=== PATIENT | male | born 1990 | race Caucasian/White ===

== ENCOUNTER 2022-01-21 14:30 | Emergency (ER) | payer OTHER, SELFPAY ==
--- NOTE | ~2022-01-21 | XR_ITS ---
EXAMINATION: XR chest 2V 01/21/2022 15:20 INDICATION: Substernal chest pain PROCEDURE: 2 view chest COMPARISON: 2 view chest FINDINGS: The lungs are clear. The cardiomediastinal silhouette is within normal limits. There are no pleural effusions. There is no pneumothorax suspected. IMPRESSION: 1: NO ACUTE CARDIOPULMONARY DISEASE. Reviewed, dictated and finalized at location A.
--- NOTE | 2022-01-21 14:31 | ECG_ITS ---
Measurements Intervals [place] Rate: 78 P: 18 TX: 146 QRS: 48 QRSD: 106 T: 42 QT: 351 QTc: 401 Interpretive Statements SINUS RHYTHM NORMAL ECG Electronically Signed On 01-21-2022 15:21:49 CDT by Gael Love D.O.
[2022-01-21 14:37] VITALS: BP 178/105; PULSE 71; RESP 19; TEMP 36.5; O2SAT 99
[2022-01-21 14:58] LABS: Basophils Absolute Auto 0.1 K/mm3 (0.0-0.1); Basophils Percent Auto 0.5 % (0.2-1.2); Eosinophils Absolute Auto 0.2 K/mm3 (0-0.3); Eosinophils Percent Auto 1.3 % (0-4.4); Hemoglobin 15.4 g/dL (14.0-18.0); Immature Granulocyte Absolute 0.03 K/mm3 (0.00-0.031); Immature Granulocyte Percent A 0.3 % (0-0.5); Lymphocytes Absolute Auto 2.05 K/mm3 (0.9-3.2); Lymphocytes Percent Auto 17.3 % (18.3-44.2); Mean Corpuscular HGB Conc 32.8 g/dl (32-36); Mean Corpuscular Hemoglobin 30.3 pg (26-34); Mean Corpuscular Volume 92.3 fl (80-100); Mean Platelet Volume 10.3 fl (7.4-10.4); Monocytes Absolute Auto 0.6 K/mm3 (0.1-0.6); Monocytes Percent Auto 5.2 % (2.6-8.5); Neutrophils Percent Auto 75.4 % (45.5-73.1); Platelet Count Result 264 k/mm3 (150-375); Red Blood Count 5.09 M/mm3 (4.6-6.20); Red Cell Distribution Width 13.1 % (11.5-14.5); White Blood Count 11.9 K/mm3 (4.5-10.0)
[2022-01-21 15:08] LABS: Alanine Aminotransferase 62 U/L (6-50); Albumin Level 5.2 g/dL (3.5-5.1); Alkaline Phosphatase 107 U/L (38-126); Anion Gap 9 mmol/L (8-16); Aspartate Amino Transferase 36 U/L (17-59); Bilirubin,Total 0.4 mg/dL (0.2-1.3); Blood Urea Nitrogen 16 mg/dL (9-20); Calcium 9.5 mg/dL (8.4-10.2); Carbon Dioxide 27 mmol/L (22-30); Chloride 105 mmol/L (98-107); Estimated CRCL calculation 135 ml/min; Estimated Glomerular Filt Rate > 60; Glucose 116 mg/dL (65-110); Lipase 114 U/L (23-300); Potassium 4.4 mmol/L (3.4-5.0); Sodium 141 mmol/L (137-145)
[2022-01-21 15:09] LABS: Prothrombin Time 12.7 Seconds (11.1-14.7)
[2022-01-21 15:10] LABS: Partial Thromboplastin Time 29.8 SECONDS (22.3-36.8)
[2022-01-21 15:20] LABS: Troponin I < 0.012 ng/mL (0.000-0.034)
--- NOTE | 2022-01-21 15:39 | PC.NURSE ---
PT HAS DECIDED TO GO TO ANOTHER ER THAT IS LESS BUSY. HE IS AWARE THAT HE CAN COME BACK IF NEEDED AMBULATORY FROM THE ED WITH A STEADY GAIT
== END 2022-01-22 03:16 | disposition left against medical advice (07) ==
PROVIDERS: Emergency Provider Emergency Medicine
DX: R07.9 Chest pain, unspecified (principal)
CPT/HCPCS: 36415; 71046; 80053; 83690; 84484; 85025; 85610; 85730; 93005; 99199

== ENCOUNTER 2022-01-21 16:10 | Emergency (ER) | payer OTHER, SELFPAY ==
--- NOTE | ~2022-01-21 | CT_ITS ---
EXAMINATION: CT abdomen pelvis w con DATE: 01/21/2022 17:32 INDICATION: Upper abdominal pain radiates toward back n/v TECHNIQUE: Computed tomography (CT) of the abdomen and pelvis was performed with 100 mL Omnipaque-300 intravenous contrast. Automated exposure control and iterative reconstruction technique were employe d. The dose-length product was 1610.84 mGy-cm. COMPARISON: None FINDINGS: Lower thorax: Unremarkable Liver: Diffusely low density parenchyma Biliary/Gallbladder: Cholelithiasis. No bile duct dilation. Pancreas: No mass or duct dilation. Spleen: Normal. Adrenals:No mass. Kidneys: Bilateral subcentimeter hypodensities, too small to characterize but likely represent cysts. No other mass, stone, or hydronephrosis. Mild bilateral perinephric stranding. GI tract: No small or large bowel dilation. Normal appendix. Mesentery/Peritoneum: No ascites, mass, or free air. Retroperitoneum: No mass. Pelvis: Pelvic organs are within normal limits. Soft Tissues: Soft tissues and body wall unremarkable. Bones: No acute osseous finding. IMPRESSION: No acute abdominopelvic process detected. Reviewed, dictated and finalized at location K.
[2022-01-21 16:15] VITALS: BP 168/98; PULSE 78; RESP 20; TEMP 36.1; O2SAT 96
--- NOTE | 2022-01-21 16:33 | ED.ABDPAIN ---
HPI - Abdominal Pain General Chief Complaint: Abdominal Pain Stated Complaint: upper abd pain, back pain Time Seen by Provider: 01/21/22 16:34 History of Present Illness HPI narrative: 31-year-old male patient is here with complaints of upper abdominal pain in the middle and more to the right side since 10:00 a.m. this morning. The pain radiates to the back. It is constant and sharp and he rates it at 10/10. He has had nausea and 1 episode of vomiting earlier today. No diarrhea. Denies any fever or chills. Denies the pain radiating into the chest or into the shoulder blades. The patient has history of low obesity and obstructive sleep apnea and he has been on a keto diet for the last 1 month. He also states that he uses the the CPAP at night for his sleep apnea. Apparently there is a remote history of having had congestive heart failure because of the obstructive sleep apnea in the past but he is currently clear on that. He takes no home medications at the time. He does smoke a pack to 2 packs of cigarettes a day. Related Data Allergies Allergy/AdvReac Type Severity Reaction Status Date / Time No Known Allergies Allergy Verified 01/21/22 16:27 [facility] Past Medical History Medical History (Updated 01/21/22 @ 19:12 by Iliana Boudreaux MD) Congestive heart failure Obesity Obstructive sleep apnea Social History Social History (Updated 01/21/22 @ 16:59 by Iliana Boudreaux MD) Smoking packs per day: 2 Smoking cigarettes per day: 40.0 Exam Narrative: Alert and obesemale patient in moderate pain distress. He is afebrile. Blood pressure is 140/90 at the time of triage. HEENT: normocephalic. Pupils equal and reactive bilaterally. EOMs are intact. Sclerae are clear. Oral mucous membranes are moist. Ear nose throat appeared to be normal. Neck is supple. Chest wall is nontender. Breath sounds are audible bilaterally and are clear. Heart tones are normal and rhythm is regular. patient shows a sinus rhythm on the monitor. Abdomen is obese. There is tenderness in the right upper quadrant and the epigastric area without any guarding or rebound. No organomegaly. Bowel sounds are active. Rectal examination has been deferred at this time. Extremities are atraumatic. There is no pedal edema noted. Skin is warm and dry and color is normal. Patient is alert, oriented x4. His speech is clear. Gait is steady. Motor and sensory is intact. Cranial nerves are intact. Patient is anxious and seems to be distress because of pain. His thought process is normal. Eye contact is good. Course Course Emergency Course: 31-year-old male patient with abdominal pain since 10:00 a.m. this morning. Pain localized to the upper abdomen associated with nausea and 1 emesis. No fever or chills. The ER workup includes a repeat of fluids CBC which she had done at at [place] [facility] while he was waiting there and the white cell count has gone up to 15,000 with 82% segs no bands. Patient does not have a fever. Comprehensive metabolic profile was reviewed done at [place] this morning which was normal. Lipase is normal. Liver enzymes are essentially unremarkable. In the ER here an EKG was repeated and the troponin was repeated both of them are within normal limits. A CT abdomen and pelvis was done with IV contrast and is positive for cholelithiasis without any large metal the gallbladder or wall thickening reported on the report. The patient is treated with ketorolac 30 mg IV push and Zofran 4 mg IV push. He is also being given 500 cc bolus of saline. He has not had any further emesis. He is completely pain free. Patient is aware of my consult with the surgeon at [facility] as per their request. He does not want to go to the hospital tonight, states that he would prefer to follow-up up with them as an outpatient and schedule the surgery. He does understand that his pain might return and that he might end up in the hos
--- NOTE | 2022-01-21 16:44 | ECG_ITS ---
Measurements Intervals [place] Rate: 58 P: 54 TN: 148 QRS: 65 QRSD: 109 T: 61 QT: 379 QTc: 375 Interpretive Statements SINUS BRADYCARDIA WITH SINUS ARRHYTHMIA ST ELEVATION IN ANTEROLAT/INF LEADS, PROBABLY EARLY REPOLARIZATION BASELINE ARTIFACT- I, II, III, AVL BORDERLINE ECG Electronically Signed On 01-21-2022 20:14:43 CDT by Gael Love D.O.
[2022-01-21] MEDS: ONDANSETRON HCL ODT 4 MG TABLET PO (16:48)
[2022-01-21] MEDS: KETOROLAC 30 MG/ML VIAL (*BKC) IV PUSH (16:56)
[2022-01-21 17:05] LABS: Add Urine Microscopic? YES; Appearance Urine Clear (Clear); Bilirubin Urine Negative (Negative); Blood Urine Negative (Negative); Color Urine Yellow (Yellow); Glucose Urine UA Negative (Negative); Ketones Urine Negative (Negative); Leukocyte Esterase Ur Negative (Negative); Nitrate Urine Negative (Negative); Protein Urine 1+ (Negative); Specific Grav Ur >= 1.030 (1.010-1.020); Urobilinogen Urine 0.2 mg/dL (0.2-1.0); pH Urine 5.5 (5.0-8.0)
[2022-01-21 17:05] LABS: Basophils Absolute Auto 0.06 K/mm3 (0.00-0.10); Basophils Percent Auto 0.4 % (0.0-1.0); Eosinophils Absolute Auto 0.08 K/mm3 (0.02-0.50); Eosinophils Percent Auto 0.5 % (1.0-6.0); Hematocrit 45.6 % (40.0-54.0); Hemoglobin 15.2 g/dL (14.0-18.0); Immature Granulocyte Absolute 0.08 K/mm3 (0.00-0.00); Immature Granulocyte Percent A 0.5 % (0.0-0.0); Lymphocytes Absolute Auto 1.78 K/mm3 (1.10-4.50); Lymphocytes Percent Auto 11.9 % (18.0-42.0); Mean Corpuscular HGB Conc 33.3 g/dL (32.0-36.0); Mean Corpuscular Hemoglobin 30.7 pg (27.0-31.0); Mean Corpuscular Volume 92.1 fL (78.0-102.0); Mean Platelet Volume 10.7 fl (8.7-11.0); Monocytes Absolute Auto 0.63 K/mm3 (0.10-0.90); Monocytes Percent Auto 4.2 % (2.0-11.0); Neutrophils Absolute Auto 12.4 K/mm3 (1.7-7.2); Neutrophils Percent Auto 82.5 % (50.0-70.0); Platelet Count Result 256 K/mm3 (150-420); Red Blood Count 4.95 M/mm3 (4.70-6.10)
[2022-01-21 17:11] LABS: Bacteria Urine Trace /hpf; Mucus Urine Moderate /lpf; RBC Urine None seen /hpf (0-2); Squamous Epithelial Cell Urine Rare /hpf (Few); WBC Urine None seen /hpf (0-3)
[2022-01-21 17:14] VITALS: BP 153/93; PULSE 65; RESP 21; O2SAT 97
[2022-01-21 17:21] LABS: Troponin I 5.2 ng/L (0.00-60.4)
[2022-01-21 17:55] VITALS: BP 157/88; PULSE 60; RESP 20; O2SAT 95
[2022-01-21] MEDS: SODIUM CHLORIDE 0.9% IV 500 ML 999 ML IV CONT (18:09)
[2022-01-21] MEDS: PANTOPRAZOLE SODIUM IV 40 MG VIAL IV PUSH (18:09)
[2022-01-21 18:54] VITALS: BP 166/90; PULSE 79; RESP 22; O2SAT 97
[2022-01-21 19:51] VITALS: BP 155/90; PULSE 85; RESP 20; TEMP 36.6; O2SAT 98
== END 2022-01-21 19:53 | disposition home or self-care (01) ==
PROVIDERS: Emergency Provider Emergency Medicine
DX: E66.9 Obesity, unspecified (principal); K80.20 Calculus of gallbladder without cholecystitis without obstruction
CPT/HCPCS: 36415; 74177; 81001; 84484; 85025; 93005; 96361; 96365; 96375; 99284; A9270; C9113; J0696; J1885; J7040; Q9967